=== PATIENT | female | born 1975 | race Hispanic/Latino ===

== ENCOUNTER → 2017-08-25 | Day surgery (SDC) | payer OTHER ==
[~2017-08-25] MED LIST: ACETAMINOPHEN 1000 MG/100 ML 100 ML IV ONE; BUPIVACAINE 0.5%/EPI 30 ML SDV INJ ONE; CEFAZOLIN SOD 2 GM/D5W 50ML 50 ML IV ONE; DEXAMETHASONE SOD PHOS INJ 4 MG/ML VIAL ONE; FENTANYL CITRATE/PF 100MCG/2 ML INJ ONE; KETOROLAC TROMETHAMINE 30 MG/ML VIAL ONE; ONDANSETRON HCL INJ 2 MG/ML VIAL ONE; PROPOFOL IV EMULSION 10 MG/ML 20 ML VIAL ONE; SEVOFLURANE INHAL SOLN 250 ML PEN BTL ONE
--- NOTE | 2017-08-26 09:24 | Operative Report ---
DATE OF PROCEDURE: August 25, 2017 PREOPERATIVE DIAGNOSIS: Left knee pain with possible intra-articular loose body. POSTOPERATIVE DIAGNOSES 1. 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 2. Symptomatic medial shelf plica. OPERATIONS/PROCEDURES PERFORMED 1. The patient underwent a left knee examination under anesthesia. 2. Left knee arthroscopy. 3. Left knee chondroplasty of the patella, trochlea, lateral femoral condyle, and lateral tibial plateau. 4. Resection of a medial shelf plica. DOBBY LOOM WEAVER: None. ANESTHESIA: General endotracheal intubation anesthesia. IV FLUIDS: Per the anesthesia record. BRIEF DESCRIPTION OF THE PATIENT'S OPERATIVE PROCEDURE: Ms. Ferrera was taken to the operating room and placed in the supine on the operating table. Following induction of general anesthesia, as well as endotracheal intubation, the patient's left lower extremity was examined under anesthesia. She was found to have a mild effusion within the knee joint. Range of motion of the knee was full. There was no ligamentous instability. The patient's lower extremity was prepped and draped in a standard surgical fashion. A 2-portal technique was used to provide this patient arthroscopic evaluation of the joint. Examination of the suprapatellar pouch, medial and lateral gutters found no evidence of loose bodies. There was, however, evidence of chondromalacia of the patellar and trochlear surfaces. Additionally, there was a large and inflamed medial shelf plica interdigitating between the patella and trochlea. The scope was advanced in the medial compartment. Examination of the medial compartment demonstrated an intact medial meniscus. There was no significant chondromalacia of the articulating surfaces of the medial compartment. There were no loose bodies in the medial compartment. The scope was advanced into the intercondylar, and the anterior cruciate ligament was identified and found to be intact. Scope was advanced in the lateral compartment, and there was chondromalacia of the lateral femoral condyle and lateral tibial plateau. The lateral femoral had a focal area of grade 2 chondromalacia. A shaver was used to provide a chondroplasty to the lateral femoral condyle and lateral tibial plateau. The scope was then placed in the intercondylar notch. The trocar was placed within the scope cannula, and the scope was advanced along the medial wall of the lateral femoral condyle into the posterior knee. The scope was then placed back within the trocar, and examination of the posterior aspect of the knee also did not demonstrate evidence of intra-articular loose body. The scope was then placed in the suprapatellar pouch and chondroplasty of the patella and trochlea were performed. The medial shelf plica was resected at this time. The knee was deflated of its sterile normal saline. The portal sites were closed and the knee was injected with 0.5% Marcaine with epinephrine. Sterile dressings were applied. The patient was then awakened and taken to the postanesthesia care in stable condition. Job#: [id number] KATLYN
== END | disposition home or self-care (01) ==
LOC: OR 08:17
PROVIDERS: ATTEND Specialist
DX: M67.52 Plica syndrome, left knee (principal); M22.42 Chondromalacia patellae, left knee; M23.42 Loose body in knee, left knee; M17.12 Unilateral primary osteoarthritis, left knee; Z68.36 Body mass index [BMI] 36.0-36.9, adult
CPT/HCPCS: 29875; 81025; J1100; J1885; J2405

== ENCOUNTER 2017-09-24 15:00 | Outpatient (RCR) | payer OTHER | END 2017-09-27 | LOC: PT 15:00 | PROVIDERS: ATTEND Specialist | DX: M25.561 Pain in right knee (principal); M17.11 Unilateral primary osteoarthritis, right knee ==

== ENCOUNTER 2017-10-05 17:00 | Outpatient (RCR) | payer OTHER | END 2017-10-28 | LOC: PT 17:00 | PROVIDERS: ATTEND Specialist | DX: M25.562 Pain in left knee (principal); M62.81 Muscle weakness (generalized) ==

== ENCOUNTER 2020-03-16 11:11 | Inpatient (IN) | payer OTHER ==
[~2020-03-16] VITALS: Ht 167.6 cm; Wt 106.2 kg
[2020-03-16] MEDS ORDERED: SODIUM CHLORIDE 0.9% 1000ML 1,000 ML IV STA (11:54)
[2020-03-16 12:07] LABS: HEMATOCRIT 32.7 % (34.2-44.1); HEMOGLOBIN 10.9 g/dL (12.0-16.0); LYMPHOCYTES # (AUTO) 0.6 (1.0-3.2); LYMPHOCYTES % 6.4 % (18.0-39.1); MEAN CORPUSCULAR HGB CONC 33.3 g/dL (31-35); MONOCYTES # (AUTO) 0.2 (0.2-0.8); MONOCYTES % 1.9 % (4.4-11.3); NEUTROPHILS # (AUTO) 8.7 (2.1-6.9); NEUTROPHILS % 90.7 % (38.7-80.0); PLATELET COUNT 187 x10e3/uL (140-360); RED BLOOD COUNT 3.76 x10e6/uL (3.6-5.1); RED CELL DISTRIBUTION WIDTH 13.6 % (11.7-14.4)
[2020-03-16 12:23] LABS: INR 1.12
[2020-03-16 12:24] LABS: PARTIAL THROMBOPLASTIN TIME 35.9 seconds (23.8-35.5)
[2020-03-16 12:32] LABS: ALANINE AMINOTRANSFERASE 30 IU/L (0-55); ALBUMIN/GLOBULIN RATIO 0.7 (0.8-2.0); ALKALINE PHOSPHATASE 42 IU/L (40-150); ANION GAP 17.4 mmol/L (8-16); BLOOD UREA NITROGEN 15 mg/dL (7-26); BUN/CREATININE RATIO 13 (6-25); CALCIUM 8.8 mg/dL (8.4-10.2); CARBON DIOXIDE 25 mmol/L (22-29); CHLORIDE 99 mmol/L (98-107); CREATINE KINASE 186 IU/L (29-168); CREATININE, SERUM 1.17 mg/dL (0.57-1.11); EST GLOMERULAR FILTRATION RATE 50 ML/MIN (60-); GLUCOSE 113 mg/dL (74-118); POTASSIUM 3.4 mmol/L (3.5-5.1); SODIUM 138 mmol/L (136-145)
[2020-03-16] MEDS: AZITHROMYCIN 500MG/NS 250 ML 250 ML IV SCH (12:38)
[2020-03-16] MEDS: CEFTRIAXONE SOD 2 GM/NS 100 ML 100 ML IV SCH (12:38)
[2020-03-16] MEDS: DEXAMETHASONE SOD PHOS 10 MG/1 ML VIAL IV SCH (12:38)
--- OUTSIDE RECORDS SUMMARY | 2020-03-16 13:26 | XMS REPORT | Continuity of Care Document ---
Author Author [facility] t Organization [facility] Address [address] [place] [address] Phone Unavailable Care Team Providers Care Intermediate Card Tender Name Role Phone BECKIE COTTO DO PCP Payers Payer Name Policy Type Policy Number Effective Date Expiration Date Marco A Garcia o [id number] 2017 00:00:00 [facility] Problems This patient has no known problems. Allergies, Adverse Reactions, Alerts Allergy Name Allergy Type Status Severity Reaction(s) Onset Date Inacti ve Date Treating Clinician Comments Source No Known Allergies DA Active U 2013-01-23 00:00:00 [facility] Medications This patient has no known medications. Procedures Procedure Date / Time Performed Performing Clinician Brenda e KNEE ARTHROSCOPY/SURGERY 2017-08-25 00:00:00 RITIKA DOMINGUEZ [facility] Encounters Start Date/Time End Date/Time Encounter Type Admission Type Attendi [facility] Care Department Encounter ID Source 2017-10-05 17:00:00 2017-10-28 23:59:00 Discharged Recurring [facility] [id number] [facility] 2017-09-14 15:56:00 2017-09-27 23:59:00 Discharged Recurring [facility] [id number] [facility] 2017-08-25 08:17:00 2017-08-25 08:17:00 Registered Surgical Day Care [facility] [id number] [facility] Results Test Description Test Time Test Comments Results Result Comments Source Urine Test 2017-08-25 08:53:00 Test Item Urine Test (test code = 2106-3) NEGATIVE [facility]IVE [facility] [id number] 08:53:00* Test Item Value Reference Range Interpretation Comments Urine Test (test code = 2106-3) NEGATIVE NEGATIVE [facility]
[2020-03-16 13:36] LABS: BILIRUBIN,URINE SMALL (NEGATIVE); CLARITY,URINE HAZY (CLEAR); COLOR,URINE AMBER (YELLOW); KETONES,URINE NEGATIVE (NEGATIVE); LEUKOCYTE ESTERASE ,URINE NEGATIVE (NEGATIVE); NITRITE,URINE NEGATIVE (NEGATIVE); PROTEIN,URINE DIPSTICK 2+ (NEGATIVE); URINE UROBILINOGEN 2 mg/dL (0.2 - 1)
[2020-03-16 13:40] LABS: BACTERIA,URINE MANY /HPF; EPITHELIAL CELLS,URINE MODERATE /LPF; MUCUS,URINE FEW (RARE)
--- NOTE | 2020-03-16 13:55 | Diagnostic Imaging Report ---
EXAMINATION: CHEST SINGLE (PORTABLE) INDICATION: COVID SX'S COMPARISON: None FINDINGS: TUBES and LINES: None. LUNGS: Lungs are moderately inflated. There are bilateral interstitial and patchy airspace opacities in the mid and lower lung zones. PLEURA: No pleural effusion or pneumothorax. HEART AND MEDIASTINUM: The cardiomediastinal silhouette is unremarkable. BONES AND SOFT TISSUES: No acute osseous lesion. Soft tissues are unremarkable. UPPER ABDOMEN: No free air under the diaphragm. IMPRESSION: Bilateral opacities, compatible with atypical infection, including viral pneumonia. Recommend follow-up chest radiograph in 6-8 weeks to assess for resolution. Signed by: Dr. Paul Rea MD on 03/16/2020 1:51 PM
[2020-03-16] MEDS ORDERED: SODIUM CHLORIDE 0.9% 1000ML 1,000 ML IV SCH (14:00)
--- NOTE | 2020-03-16 14:09 | Emergency Department Note ---
History of Present Illnes History of Present Illness Chief Complaint: Respiratory History of Present Illness This is a 44 year old female PATIENT EXPOSED TO BOTH HER CHILDREN WHO ARE COVID + C/O OF 10 DAYS ALTERNATING SYMPTOMS OF FATIGUE, CHILLS, NAUSEA, SHORTNESS OF BREATH, NO APPETITE, DIARRHEA. Historian: Patient Arrival Mode: Car Additional Treatment COUNTER TENDER: NONE Entertainment Usher Required: No Onset (how long ago): day(s) (10) Location: ALL OVER Quality: ACHY Radiation: Reports non-radiation Severity: moderate Onset quality: gradual Timing of current episode: intermittent Progression: waxing and waning Chronicity: new Context: Denies recent illness Relieving factors: none Exacerbating factors: none Associated symptoms: Reports cough, Reports fever/chills, Reports shortness of breath Past Medical/Family History Physician Review I have reviewed the patient's past medical and family history. Any updates have been documented here. Past Medical History Recent Fever: Yes (YESTERDAY 100) Clinical Suspicion of Infectio: Yes New/Unexplained Change in Ment: No Past Medical History: None Past Surgical History: Cholecysctectomy, Tubal Ligation, , Knee Replacement Other Surgery: PYLENODAL ABCESS DEVIATED SEPTUM Social History Smoking Cessation: Never Smoker Counseling Performed: No Alcohol Use: None Any Illegal Drug Use: No TB Exposure/Symptoms: No Physically hurt or threatened: No Family History Family history of heart diseas: No Other Any Pre-Existing Lines (PICC,: No Review of Systems Review of Systems Constitutional: Reports as per HPI EENTM: Reports no symptoms Cardiovascular: Reports no symptoms Respiratory: Reports as per HPI, Reports cough, Reports dyspnea, Reports dyspnea on exertion Gastrointestinal: Reports as per HPI, Reports nausea Genitourinary: Reports no symptoms Musculoskeletal: Reports joint pain, Reports muscle pain Integumentary: Reports no symptoms Neurological: Reports no symptoms Psychological: Reports no symptoms Endocrine: Reports no symptoms Hematological/Lymphatic: Reports no symptoms Physical Exam Related Data Allergies: Coded Allergies: No Known Allergies (Unverified , 03/16/20) Triage Vital Signs Vital Signs Date Time Temp Pulse Resp B/P (MAP) Pulse Ox O2 Delivery O2 Flow Rate FiO2 03/16/20 11:27 98.7 95 20 115/72 90 Room Air 03/16/20 12:40 2.0 Vital signs reviewed: Yes Physical Exam CONSTITUTIONAL Constitutional: Present well-developed, Present well-nourished HENT HENT: Present normocephalic, Present atraumatic, Present oropharynx clear/moist, Present nose normal HENT L/R: Present left ext ear normal, Present right ext ear normal EYES Eyes: Reports PERRL, Reports conjunctivae normal NECK Neck: Present ROM normal PULMONARY Pulmonary: Present effort normal, Present other (DECR BS's BIBASILAR) CARDIOVASCULAR Cardiovascular: Present regular rhythm, Present heart sounds normal, Present capillary refill normal, Present normal rate GASTROINTESTINAL Abdominal: Present soft, Present nontender, Present bowel sounds normal GENITOURINARY Genitourinary: Present exam deferred SKIN Skin: Present warm, Present dry MUSCULOSKELETAL Musculoskeletal: Present ROM normal NEUROLOGICAL Neurological: Present alert, Present oriented x 3, Present no gross motor or sensory deficits PSYCHOLOGICAL Psychological: Present mood/affect normal, Present judgement normal Results Laboratory Result Diagram: 03/16/20 1152 03/16/20 1152 Laboratory Laboratory Tests Test 03/16/20 12:33 03/16/20 11:56 03/16/20 11:52 Urine Color Maggy (YELLOW) Urine Clarity Hazy (CLEAR) Urine pH 6 (5 - 7) Urine Specific [place] 1.025 (1.010-1.025) Urine Protein 2+ (NEGATIVE) Urine Glucose (UA) Negative (NEGATIVE) Urine Ketones Negative (NEGATIVE) Urine Blood Moderate (NEGATIVE) Urine Nitrite Negative (NEGATIVE) Urine Bilirubin Small (NEGATIVE) Urine Urobilinogen 2 mg/dL (0.2 - 1) Urine Leukocyte Esterase Negative (NEGATIVE) Urine RBC 11-20 /HPF (0-5) Urine WBC 6-10 /HPF (0-5) Urine Epithelial Cells Moderate /LPF (NONE) Urine Bacteria Many /HPF (NONE) Urine Hyaline Casts 2-5 (0-1) Urine Mucus Few (RARE) White Blood Count 9.54 x10e3/uL (4.8-10.8) Red Blood Count 3.76 x10e6/uL (3.6-5.1) Hemoglobin 10.9 g/dL (12.0-16.0) Hematocrit 32.7 % (34.2-44.1) Mean Corpuscular Volume 87.0 fL (81-99) Mean Corpuscular Hemoglobin 29.0 pg (28-32) Mean Corpuscular Hemoglobin Concent 33.3 g/dL (31-35) Red Cell Distribution Width 13.6 % (11.7-14.4) Platelet Count 187 x10e3/uL (140-360) Neutrophils (%) (Auto) 90.7 % (38.7-80.0) Lymphocytes (%) (Auto) 6.4 % (18.0-39.1) Monocytes (%) (Auto) 1.9 % (4.4-11.3) Eosinophils (%) (Auto) 0.0 % (0.0-6.0) Basophils (%) (Auto) 0.0 % (0.0-1.0) Neutrophils # (Auto) 8.7 (2.1-6.9) Lymphocytes # (Auto) 0.6 (1.0-3.2) Monocytes # (Auto) 0.2 (0.2-0.8) Eosinophils # (Auto) 0.0 (0.0-0.4) Basophils # (Auto) 0.0 (0.0-0.1) Absolute Immature Granulocyte (auto 0.10 x10e3/uL (0-0.1) Prothrombin Time 15.0 seconds (11.9-14.5) Prothromb Time International Ratio 1.12 Activated Partial Thromboplast Time 35.9 seconds (23.8-35.5) Sodium Level 138 mmol/L (136-145) Potassium Level 3.4 mmol/L (3.5-5.1) Chloride Level 99 mmol/L (98-107) Carbon Dioxide Level 25 mmol/L (22-29) Anion Gap 17.4 mmol/L (8-16) Blood Urea Nitrogen 15 mg/dL (7-26) Creatinine 1.17 mg/dL (0.57-1.11) Estimat Glomerular Filtration Rate 50 ML/MIN (60-) BUN/Creatinine Ratio 13 (6-25) Glucose Level 113 mg/dL (74-118) Calcium Level 8.8 mg/dL (8.4-10.2) Total Bilirubin 0.5 mg/dL (0.2-1.2) Aspartate Amino Transf (AST/SGOT) 32 IU/L (5-34) Alanine Aminotransferase (ALT/SGPT) 30 IU/L (0-55) Alkaline Phosphatase 42 IU/L (40-150) Creatine Kinase 186 IU/L (29-168) Creatine Kinase MB 0.80 ng/mL (0-5.0) Troponin I < 0.001 ng/mL (0-0.300) Total Protein 7.3 g/dL (6.5-8.1) Albumin 3.0 g/dL (3.5-5.0) Globulin 4.3 g/dL (2.3-3.5) Albumin/Globulin Ratio 0.7 (0.8-2.0) Lab results reviewed: Yes Imaging Imaging results reviewed: Yes Assessment & Plan Medical Decision Making MDM 10 D OF F/C, ACHING, THEN COUGH & PROGRESSIVE SOB X 2-3 DAYS - LIKELY COVID19, CHECK CBC, CHEM, BLD CX'S, CXR, ADMIT. INITIAL O2 SAT 88% ON RA, NOW SAT 98% ON 3 L Reassessment Reassessment ADMIT TO DR ASHLEY (PCP IS DR COTTO), CONSULT Azam CELESTE Assessment & Plan Final Impression: (1) Pneumonia due to COVID-19 virus (2) Hypoxia Depart Disposition: ADMITTED Last Vital Signs Date Time Temp Pulse Resp B/P (MAP) Pulse Ox O2 Delivery O2 Flow Rate FiO2 03/16/20 12:40 99.1 91 22 117/74 98 Nasal Cannula 2.0 Home Meds No Active Prescriptions or Reported Meds Medications in the ED Ceftriaxone Sodium 100 ml @ 100 mls/hr DAILY IV Last administered on 03/16/20at 12:38; Admin Dose 100 MLS/HR; Start 03/16/20 at 12:15; Stop 0 at 12:14 Azithromycin 250 ml @ 200 mls/hr DAILY IV Last administered on 03/16/20at 12:38; Admin Dose 200 MLS/HR; Start 03/16/20 at 12:16; Stop 03/23/20 at 12:15 Dexamethasone Sodium Phosphate 6 mg DAILY IV Last administered on 03/16/20at 12:38; Admin Dose 6 MG; Start 03/16/20 at 12:18; Stop 03/23/20 at 12:17 Sodium Chloride 1,000 ml @ 0 mls/hr Q0M STAT IV Last administered on 03/16/20at 12:38; Admin Dose 999 MLS/HR; Start 03/16/20 at 11:54; Stop 03/16/20 at 11:59; Status DC Sodium Chloride 1,000 ml @ 100 mls/hr Q10H IV ; Start 03/16/20 at 14:00; Stop 03/16/20 at 23:59; Status UNV SRIKANTH KRUSE MD Mar 16, 2020 14:09
--- OUTSIDE RECORDS SUMMARY | 2020-03-16 14:12 | XMS REPORT | Continuity of Care Document ---
Author Author [facility] t Organization [facility] Address [address] [place] [address] Phone Unavailable Care Team Providers Care Supplier Quality Name Role Phone BECKIE COTTO DO PCP Zak KRUSE Attphys Unavailable Payers Payer Name Policy Type Policy Number Effective Date Expiration Date Marco A Garcia o [id number] 2017 00:00:00 [facility] Problems This patient has no known problems. Allergies, Adverse Reactions, Alerts Allergy Name Allergy Type Status Severity Reaction(s) Onset Date Inacti ve Date Treating Clinician Comments Source No Known Allergies DA Active U 2013-01-23 00:00:00 [facility] Medications This patient has no known medications. Procedures Procedure Date / Time Performed Performing Clinician Sour e KNEE ARTHROSCOPY/SURGERY 2017-08-25 00:00:00 RITIKA DOMINGUEZ [facility] Encounters Start Date/Time End Date/Time [facility]counter [facility] Encounter ID Source 2017-10-05 17:00:00 2017-10-28 23:59:00 Discharged Recurring [facility] [id number] [facility] 2017-09-14 15:56:00 2017-09-27 23:59:00 Discharged Recurring [facility] [id number] [facility] 2017-08-25 08:17:00 2017-08-25 08:17:00 Registered Surgical Day Care [facility] [id number] [facility] Results Test Description Test Time Test Comments Results Result Comments Source CHEST SINGLE (PORTABLE) 2020-03-16 13:50:00 [facility] : 1975 Sex: F [facility] [address] [place] [address] Patient Name: HAILEY DIAZ MR #: [id number] : 1975 Age/Sex: 44/F Req #: [id number] Adm Physician: Ordered by: SRIKANTH KRUSE MD Report #: [id number] Location: ER Room/Bed: Procedure: [id number] DX/CHEST SINGLE (PORTABLE) Exam Date: 03/16/20 Exam Time: 1320 REPORT STATUS: Signed EXAMINATION: CHEST SINGLE (PORTABLE) INDICATION: COVID SX'S COMPARISON: None FINDINGS: TUBES and LINES: None. LUNGS: Lungs are moderately inflated. There are bilateral interstitial and patchy airspace opacities in the mid and lower lung zones. PLEURA: No pleural effusion or pneumothorax. HEART AND MEDIASTINUM: The cardiomediastinal silhouette is unremarkable. BONES AND SOFT TISSUES: No acute osseous lesion. Soft tissues are unremarkable. UPPER ABDOMEN: No free air under the diaphragm. IMPRESSION: Bilateral opacities, compatible with atypical infection, including viral pneumonia. Recommend follow-up chest radiograph in 6-8 weeks to assess for resolution. Signed by: Dr. Heike Alford MD on 03/16/2020 1:51 PM Dictated By: HEIKE ALFORD MD 135 Transcribed By: HEBERT on 03/16/20 1351 COPY TO: SRIKANTH KRUSE MD Urine Test 2017-08-25 08:53:00 Test Item Urine Test (test code = 2106-3) NEGATIVE NEGATIVE [facility] [id number] 08:53:00* Test Item Value Reference Range Interpretation Comments Urine Test (test code = 2106-3) NEGATIVE NEGATIVE [facility]
[2020-03-16] MEDS ORDERED: ACETAMINOPHEN 325 MG TAB PO PRN (16:00)
[2020-03-16] MEDS ORDERED: ONDANSETRON HCL INJ 2MG/ML 2ML 2 MG/ML VIAL IV PRN (16:00)
[2020-03-16] MEDS ORDERED: POTASSIUM CHLORIDE 20 MEQ TAB CR PO PRN (16:45)
[2020-03-16] MEDS: ENOXAPARIN SOD INJ 40 MG/0.4 ML SYR SC SCH (17:01)
--- NOTE | 2020-03-16 17:04 | Consultation ---
DATE OF CONSULTATION: Pulmonary Critical Care Consultation CHIEF COMPLAINT: Fevers, cough and infiltrates suggestive of viral pneumonia. HISTORY OF PRESENT ILLNESS: The patient is a 44-year-old woman. She reports myalgias, fevers, and fatigue for about 10 days. She has also noticed some shortness of breath and some cough. Her symptoms have not been relieved with some medications prescribed by her physician over the phone. PAST SURGICAL HISTORY: 1. Status post cholecystectomy. 2. Status post nasal surgery. 3. Status post tubal ligation. 4. Status post knee surgery. PAST MEDICAL HISTORY: 1. No prior history of asthma or bronchitis. 2. No prior history of cardiac disease. ALLERGIES: NO KNOWN DRUG ALLERGIES. FAMILY HISTORY: Noncontributory. SOCIAL HISTORY: The patient is not a smoker. She is not a drinker. REVIEW OF SYSTEMS: The patient has had some myalgias. She had some mild fevers. She also had congestion and cough. She has no chest pain. She has some dyspnea. She has no abdominal pain. She did have some nausea and vomiting. She has no leg edema. PHYSICAL EXAMINATION: VITAL SIGNS: The blood pressure is 117/74 and the pulse is 91, saturation is 98% on 2 L, and temperature is 99.1. HEENT: No facial swelling or erythema. LYMPHATIC: No submandibular, cervical, or supraclavicular adenopathy. CARDIAC: Regular rate and rhythm with normal S1, S2. LUNGS: Auscultation of lungs reveals rhonchorous breath sounds bilaterally. There is no wheezing. ABDOMEN: Soft, nontender. There is no rebound or guarding. EXTREMITIES: No leg edema. SKIN: No rashes. LABORATORY DATA: Sodium is 138, potassium is 3.4. The BUN to creatinine ratio is 15 to 1.17. Other electrolytes are within normal limits. The white blood cell count 9.5 and hemoglobin is 10.9. The platelet count is 187. RADIOGRAPHIC DATA: Chest x-ray shows bilateral opacities suggestive of atypical pneumonia. IMPRESSION: 1. Coronavirus disease-19 and viral pneumonia. 2. Acute respiratory failure. 3. Nausea and vomiting. 4. Anemia, unspecified. 5. Acute kidney injury. 6. Hypokalemia. PLAN: 1. The patient to receive IV hydration. 2. Begin Rocephin and Zithromax. 3. Lovenox for DVT prophylaxis. 4. Judicious use of IV fluids. 5. The patient will probably be a candidate for remdesivir. MD ABDULAZIZ Solis/DAIANA /[id number]
[2020-03-16] MEDS: HYDROCODONE/APAP 5MG-325MG TAB PO PRN (22:45)
[2020-03-16] MEDS: ZOLPIDEM TARTRATE 5 MG TAB PO PRN (22:45)
--- NOTE | 2020-03-16 22:50 | NUR ---
patient received to room 297 via stretcher from the emergency room. vss. patient medicated for c/o generalized pain per patients request. admit assessment/history obtained. telemetry placed on patient but patient refuses pulse ox per orders at this time. call pitts placed within reach. patient instructed to call for assistance when needed.
[2020-03-16 22:58] VITALS: BP 137/82
[2020-03-16 23:18] VITALS: BP 137/82
[2020-03-17] VITALS (10 sets, daily range): BP systolic 128–140; BP diastolic 80–95
--- NOTE | 2020-03-17 06:53 | Diagnostic Imaging Report ---
EXAMINATION: CHEST SINGLE (PORTABLE) INDICATION: ^Y ^PNEMONIA ^[id number] ^0613 ^Y COMPARISON: 03/16/2020 FINDINGS: AP view TUBES and LINES: None. LUNGS: Low lung volumes. Diffuse bilateral airspace opacities, increased from prior exam. PLEURA: No pleural effusion or pneumothorax. HEART AND MEDIASTINUM: The cardiomediastinal silhouette is enlarged. BONES AND SOFT TISSUES: No acute osseous lesion. Soft tissues are unremarkable. UPPER ABDOMEN: No free air under the diaphragm. IMPRESSION: Increased bilateral airspace opacities, representing worsening edema and/or pneumonia. Signed by: Dr. Crow Wiley MD on 03/17/2020 6:50 AM
[2020-03-17 07:12] LABS: HEMATOCRIT 30.1 % (34.2-44.1); HEMOGLOBIN 10.1 g/dL (12.0-16.0); LYMPHOCYTES # (AUTO) 0.7 (1.0-3.2); LYMPHOCYTES % 13.3 % (18.0-39.1); MEAN CORPUSCULAR HEMOGLOBIN 29.4 pg (28-32); MEAN CORPUSCULAR HGB CONC 33.6 g/dL (31-35); MEAN CORPUSCULAR VOLUME 87.8 fL (81-99); MONOCYTES # (AUTO) 0.1 (0.2-0.8); MONOCYTES % 2.5 % (4.4-11.3); NEUTROPHILS # (AUTO) 4.3 (2.1-6.9); NEUTROPHILS % 83.6 % (38.7-80.0); PLATELET COUNT 212 x10e3/uL (140-360); RED BLOOD COUNT 3.43 x10e6/uL (3.6-5.1); RED CELL DISTRIBUTION WIDTH 13.4 % (11.7-14.4)
[2020-03-17 07:30] LABS: ALANINE AMINOTRANSFERASE 27 IU/L (0-55); ALBUMIN 2.7 g/dL (3.5-5.0); ALBUMIN/GLOBULIN RATIO 0.6 (0.8-2.0); ALKALINE PHOSPHATASE 39 IU/L (40-150); ANION GAP 12.6 mmol/L (8-16); BLOOD UREA NITROGEN 16 mg/dL (7-26); BUN/CREATININE RATIO 22 (6-25); CALCIUM 8.6 mg/dL (8.4-10.2); CARBON DIOXIDE 23 mmol/L (22-29); CHLORIDE 106 mmol/L (98-107); CREATININE, SERUM 0.73 mg/dL (0.57-1.11); EST GLOMERULAR FILTRATION RATE > 60 ML/MIN (60-); GLUCOSE 116 mg/dL (74-118); POTASSIUM 3.6 mmol/L (3.5-5.1); SODIUM 138 mmol/L (136-145)
--- NOTE | 2020-03-17 07:30 | NUR ---
PATIENT SITTING AT BED SIDE, NOTED WITH SOME COUGH, NO DISTRESS NOTED. O2 IN PLACE VIA N/C. TELEMETRY BOX [address] BED IN LOWER POSITION, CALL LIGHT AT REACH.
[2020-03-17] MEDS: AZITHROMYCIN 500MG/NS 250 ML 250 ML IV SCH (09:13)
[2020-03-17] MEDS: DEXAMETHASONE SOD PHOS 10 MG/1 ML VIAL IV SCH ×2 (09:13→17:35)
--- NOTE | 2020-03-17 10:45 | NUR ---
PATIENT TRANSFERRED TO ROOM 298. BED SIDE SHIFT REPORT GIVEN TO RECEIVING NURSE.
[2020-03-17] MEDS ORDERED: FUROSEMIDE INJ 10 MG/ML 4 ML VIAL IV ONE (12:00)
[2020-03-17] MEDS: BENZONATATE 100 MG CAP PO PRN ×2 (12:03→23:47)
[2020-03-17] MEDS: CEFTRIAXONE SOD 2 GM/NS 100 ML 100 ML IV SCH (12:03)
--- NOTE | 2020-03-17 12:22 | Progress Note ---
DATE: SUBJECTIVE: The patient is having less discomfort, but she still has some cough and dyspnea. She did not have fevers overnight. Her initial COVID test was negative. PHYSICAL EXAMINATION: VITAL SIGNS: Blood pressure is 128/80, saturations 98% on 3 L and her respiratory rate is 22. HEENT: Shows no facial swelling or erythema. LYMPHATIC: Shows no submandibular, cervical, supraclavicular adenopathy. CARDIAC: Reveals regular rate and rhythm with normal S1, S2. LUNGS: Auscultation of lungs reveals crackles at the bases. There is no wheezing. ABDOMEN: Soft and nontender. There is no rebound or guarding. LABORATORY DATA: Hemoglobin is 10.1, and the platelet count is 212. The BUN to creatinine ratio is normal. The other electrolytes are within normal limits and the albumin is 2.7. IMAGING: Increased bilateral airspace opacities. 1. Community-acquired pneumonia with sepsis, present on admission. 2. Anemia, unspecified. 3. Acute kidney injury. PLAN: 1. Continue current antibiotics. 2. Repeat COVID test. 3. CT scan of chest. 4. Echocardiogram. Prieto Brooks MD [facility]/MODL /[id number]
[2020-03-17] MEDS ORDERED: DEXAMETHASONE SOD PHOS 10 MG/1 ML VIAL IV SCH (14:30)
--- NOTE | 2020-03-17 15:17 | Consultation ---
DATE OF CONSULTATION: HISTORY OF PRESENT ILLNESS: Ms. Stockton is a 44-year-old female with history of fibromyalgia, cholecystectomy, nasal surgery, and tubal ligation. The patient apparently has been sick . Her two kids were diagnosed with COVID-19. She has been having fever, chills, and sore throat. She lost her smell, but she was tested as an outpatient three times for COVID came back negative, but she became short of breath, so she came here and her COVID PCR is also negative here. LABORATORY DATA: Sodium 138, potassium 3.6, creatinine 0.73 and when she first came it was 1.7. Her white count 5.12, hemoglobin 10. PAST MEDICAL HISTORY: As above. PAST SURGICAL HISTORY: As above. ALLERGIES: NKA. SOCIAL HISTORY: There is no smoking, drug abuse, or alcohol abuse. FAMILY HISTORY: Otherwise unremarkable. PHYSICAL EXAMINATION: GENERAL: She is currently alert and oriented. VITAL SIGNS: Stable, currently afebrile. HEENT: She is not icteric. NECK: Supple. CHEST: Clear. HEART: S1, S2. ABDOMEN: Soft. Bowel sounds present. EXTREMITIES: No edema. SKIN: No rash. IMPRESSION: Atypical pneumonia. I agree with Rocephin. I agree with azithromycin. We will obtain CTA and we will start dexamethasone. I discussed with the patient about convalescent plasma as well as Remdesivir, they are both experimental drugs; unfortunately, so far the studies are not too strong. The FDA approved on Urgent Care because we are pandemic. The patient since has a negative PCR x3, she decided to wait. We will give her dexamethasone as ordered. We will obtain CTA. We will continue Lovenox, continue antibiotic. We will follow. MD KRISTINA Esteban/FRANCESCOL /[id number]
[2020-03-17] MEDS ORDERED: SODIUM CHLORIDE 0.9% 50ML 50 ML ONE (15:29)
[2020-03-17] MEDS ORDERED: IOPAMIDOL 370 MG/ML 200 ML INFUS..BTL INJ ONE (15:30)
[2020-03-17] MEDS: ENOXAPARIN SOD INJ 40 MG/0.4 ML SYR SC SCH (17:38)
--- NOTE | 2020-03-17 18:04 | Diagnostic Imaging Report ---
EXAM: CT Chest WITH contrast- Pulmonary Embolism Protocol INDICATION: Hypoxia, query pulmonary embolism. COMPARISON: Chest radiograph 03-17-2020. TECHNIQUE: Chest was scanned utilizing a multidetector helical scanner from the lung apex through the level of the diaphragm after administration of IV contrast. Thin section reconstructions were obtained with special concentration on the pulmonary arteries. Coronal and sagittal reformations were obtained. Pulmonary embolism protocol was performed. IV CONTRAST: 100 cc of Isovue 370 RADIATION DOSE: Total DLP: 419.6 mGy*cm Dose modulation, iterative reconstruction, and/or weight based adjustment of the mA/kV was utilized to reduce the radiation dose to as low as reasonably achievable. COMPLICATIONS: None FINDINGS: LINES/ TUBES: None. PULMONARY ARTERIES: No filling defect is identified within the pulmonary arteries to the segmental level. The subsegmental pulmonary arteries are not well opacified. Main pulmonary artery measures 3.3 cm in diameter. LUNGS AND AIRWAYS: The central airways are patent. There are multifocal bilateral patchy groundglass and consolidative opacities, in a predominantly peripheral distribution in all lobes. PLEURA: The pleural spaces are clear. HEART AND MEDIASTINUM: The thyroid gland is normal. No mediastinal, hilar or axillary lymphadenopathy. The heart is normal in size.. There is no pericardial effusion. UPPER ABDOMEN: Limited contrast-enhanced views of the upper abdomen. Small hiatal hernia. BONES: The visualized bony thorax is within normal limits. SOFT TISSUES: Unremarkable. IMPRESSION: No evidence of pulmonary embolism to level of the segmental pulmonary arteries. Mild cardiomegaly. Dilation of the main pulmonary artery, suggestive of pulmonary arterial hypertension. Multifocal bilateral pneumonia, compatible with viral pneumonia. Signed by: Dr. Paul Rea MD on 03/17/2020 6:01 PM
--- NOTE | 2020-03-17 19:15 | NUR ---
patient received awake, alert, lying quietly in bed. vss. no c/o pain noted. 07/03l/nc in use. respirations even and unlabored. pm assessment complete. call pitts placed within reach. patient instructed to call for assistance when needed.
[2020-03-17] MEDS: HYDROCODONE/APAP 5MG-325MG TAB PO PRN (23:47)
[2020-03-18] VITALS (8 sets, daily range): BP systolic 132–150; BP diastolic 73–94
[2020-03-18] MEDS: CEFTRIAXONE SOD 2 GM/NS 100 ML 100 ML IV SCH (09:31)
[2020-03-18] MEDS: BENZONATATE 100 MG CAP PO PRN ×2 (10:39→22:23)
[2020-03-18] MEDS: HYDROCODONE/APAP 5MG-325MG TAB PO PRN ×2 (10:39→22:31)
[2020-03-18] MEDS: AZITHROMYCIN 500MG/NS 250 ML 250 ML IV SCH (11:30)
--- NOTE | 2020-03-18 12:04 | NUR ---
INFECTIOUS DISEASE PROGRESS NOTE DR. ALDO MARIN ROS: +sob, +dyspnea ALL 14 POINT ROS NEG UNLESS OTHERWISE NOTED LABORATORY DATA: per chart RADIOLOGY: per chart, CT indicated viral PNA PHYSICAL EXAMINATION: GENERAL: She is currently alert and oriented. VITAL SIGNS: Stable, currently afebrile. HEENT: She is not icteric. NECK: Supple. CHEST: Clear. HEART: S1, S2. ABDOMEN: Soft. Bowel sounds present. EXTREMITIES: No edema. SKIN: No rash. IMPRESSION: Atypical pneumonia Viral Pneumonia PLAN: Keep on droplet precautions until we recheck the PCR Get Legionella now on 8LPM Doris Richards MSN, [employer], AGACNP-BC DISCUSSED WITH DR MARIN
[2020-03-18] MEDS: DEXAMETHASONE SOD PHOS 10 MG/1 ML VIAL IV SCH (17:17)
[2020-03-18] MEDS: ENOXAPARIN SOD INJ 40 MG/0.4 ML SYR SC SCH (17:17)
--- NOTE | 2020-03-18 19:44 | Progress Note ---
DATE: SUBJECTIVE: The patient is afebrile. She is not having any chest pain. She still has some cough. Her oxygen was increased to 8 L. PHYSICAL EXAMINATION: VITAL SIGNS: The blood pressure is 132/73, saturation is 95% on 8 L and the pulse is 58. HEENT: Shows no facial swelling or erythema. LYMPHATIC: Shows no submandibular, cervical or supraclavicular adenopathy. CARDIAC: Reveals regular rate and rhythm with normal S1 and S2. LUNGS: Auscultation of lungs shows decreased breath sounds at the bases. There is no wheezing. ABDOMEN: Soft and nontender. There is no rebound or guarding. EXTREMITIES: Shows no leg edema or calf tenderness. LABORATORY DATA: BUN to creatinine ratio is normal. Other electrolytes are within normal limits. Albumin is 2.7. The white blood cell count is 5.1, hemoglobin is 10.1, the platelet count is 212. IMPRESSION: 1. Community-acquired pneumonia with sepsis, present on admission. 2. Anemia, unspecified. PLAN: 1. Continue current antibiotics. 2. Continue oxygen as needed. 3. Await repeat COVID test. Prieto Brooks MD [facility]/MODL /[id number]
--- NOTE | 2020-03-18 20:49 | Diagnostic Imaging Report ---
EXAMINATION: CHEST SINGLE (PORTABLE) INDICATION: Hypoxia. COMPARISON: Multiple prior chest radiograph including most recent on 03/17/2020. FINDINGS: TUBES and LINES: None. LUNGS: Normal lung volumes. There is multifocal patchy airspace opacities throughout both lungs. PLEURA: No pleural effusion or pneumothorax. HEART AND MEDIASTINUM: The cardiomediastinal silhouette is mildly enlarged. BONES AND SOFT TISSUES: No acute osseous lesion. Soft tissues are unremarkable. UPPER ABDOMEN: No free air under the diaphragm. IMPRESSION: 1. Patchy airspace opacities throughout both lungs compatible with multifocal pneumonia and probable superimposed pulmonary edema. 2. Mild cardiomegaly. Signed by: Capri Islas MD on 03/18/2020 8:45 PM
[2020-03-19] VITALS (8 sets, daily range): BP systolic 136–154; BP diastolic 75–87
--- NOTE | 2020-03-19 07:00 | NUR ---
REPORT GIVEN TO DAYSHIFT NURSE. ALERT AND ORIENTED. RESTING IN BED. NO SIGNS IV INFILTRATION. BED LOCKED AND IN LOW POSITION. CALL LIGHT WITHIN REACH.
--- NOTE | 2020-03-19 07:45 | NUR ---
PATIENT IN BED RESTING WITH EYES CLOSED, NO DISTRESS NOTED. HIGH FLOW O2 IN PLACE. BED IN LOWER POSITION, CALL LIGHT AT REACH.
[2020-03-19] MEDS: CEFTRIAXONE SOD 2 GM/NS 100 ML 100 ML IV SCH (08:56)
[2020-03-19] MEDS: AZITHROMYCIN 500MG/NS 250 ML 250 ML IV SCH (09:40)
[2020-03-19] MEDS: BENZONATATE 100 MG CAP PO PRN ×2 (10:37→21:13)
[2020-03-19] MEDS ORDERED: BISACODYL 10 MG SUPP PR PRN (11:00)
--- NOTE | 2020-03-19 11:01 | NUR ---
MD IN TO SEE PATIENT, NEW ORDERS RECEIVED.
[2020-03-19] MEDS: HYDROCODONE/APAP 5MG-325MG TAB PO PRN ×2 (13:10→21:13)
--- NOTE | 2020-03-19 15:16 | NUR ---
PATIENT C/O CONSTIPATION, NOTIFIED, NEW ORDER RECEIVED.
[2020-03-19] MEDS: SENNA-S TABLET PO SCH (17:28)
[2020-03-19] MEDS: DEXAMETHASONE SOD PHOS 10 MG/1 ML VIAL IV SCH (17:28)
[2020-03-19] MEDS: ENOXAPARIN SOD INJ 40 MG/0.4 ML SYR SC SCH (17:28)
--- NOTE | 2020-03-19 17:50 | NUR ---
INFECTIOUS DISEASE PROGRESS NOTE DR. ALDO MARIN ROS: +sob, +dyspnea ALL 14 POINT ROS NEG UNLESS OTHERWISE NOTED LABORATORY DATA: per chart RADIOLOGY: per chart, CT indicated viral PNA PHYSICAL EXAMINATION: GENERAL: She is currently alert and oriented. VITAL SIGNS: Stable, currently afebrile. HEENT: She is not icteric. NECK: Supple. no JVD CHEST: diminished, symmetric expansion HEART: S1, S2. no s3, s4, no rub ABDOMEN: Soft. Bowel sounds present. EXTREMITIES: No edema. no contractures SKIN: No rash. IMPRESSION: Atypical pneumonia Viral Pneumonia work-up for collagen disease PLAN: COVID is negative x2 Get C-ANCA, P-ANCA, HIV, ESR, CRP, JULIO, RF urine legionella pending Continue the same for now Doris Richards MSN, [employer], AGACNP-BC DISCUSSED WITH DR MARIN
--- NOTE | 2020-03-19 18:30 | Progress Note ---
DATE: SUBJECTIVE: The patient is afebrile. She is still requiring 8 L of oxygen. She has some cough and dyspnea. PHYSICAL EXAMINATION: VITAL SIGNS: Blood pressure is 137/75, saturation is 98%, and the pulse is 59. HEENT: Shows no facial swelling or erythema. LYMPHATIC: Shows no submandibular, cervical, or supraclavicular adenopathy. CARDIAC: Reveals regular rate and rhythm with normal S1 and S2. LUNGS: Auscultation of lungs reveals crackles at the bases. There is no wheezing. ABDOMEN: Soft and nontender. There is no rebound or guarding. EXTREMITIES: Show no leg edema or calf tenderness. There is no cyanosis or clubbing. SKIN: Shows no rashes. NEUROLOGICAL: Shows no focal abnormalities. LABORATORY DATA: Electrolytes, BUN and creatinine all within normal limits and the albumin is 2.7. Hemoglobin is 10.1 and the platelet count is 212. RADIOGRAPHIC DATA: Chest x-ray shows patchy airspace opacities. IMPRESSION: 1. Atypical pneumonia with sepsis, present on admission. 2. Anemia, unspecified. PLAN: 1. Continue current antibiotics. 2. Wean oxygen as tolerated. Prieto Brooks MD [facility] /[id number]
[2020-03-19 21:46] LABS: HIV 1&2 AB SCREEN NON-REACTIVE (NONREACTIVE)
--- NOTE | 2020-03-19 23:38 | NUR ---
pt resting comfortably in bed no signs of distress no complaints at this time
[2020-03-20] VITALS (8 sets, daily range): BP systolic 125–153; BP diastolic 70–89
[2020-03-20] MEDS: CEFTRIAXONE SOD 2 GM/NS 100 ML 100 ML IV SCH (10:07)
[2020-03-20] MEDS: BENZONATATE 100 MG CAP PO PRN ×2 (10:07→21:07)
[2020-03-20] MEDS: HYDROCODONE/APAP 5MG-325MG TAB PO PRN ×3 (10:07→21:07)
[2020-03-20] MEDS: AZITHROMYCIN 500MG/NS 250 ML 250 ML IV SCH (10:07)
[2020-03-20] MEDS: SENNA-S TABLET PO SCH ×2 (10:07→15:52)
--- NOTE | 2020-03-20 14:18 | Progress Note ---
DATE: SUBJECTIVE: The patient has been up and about. She has been walking to the bathroom. She is not complaining of any chest pain or cough. PHYSICAL EXAMINATION: VITAL SIGNS: The patient is afebrile. The blood pressure is 125/76, saturation is 97%. She is on 7 L. The pulse is 65. HEENT: Shows no facial swelling or erythema. LYMPHATIC: Shows no submandibular, cervical, or supraclavicular adenopathy. CARDIAC: Reveals a regular rate and rhythm with a normal S1, S2. LUNGS: Auscultation of lungs reveals rhonchorous breath sounds bilaterally. There is no wheezing. ABDOMEN: Soft, nontender. There is no rebound or guarding. EXTREMITIES: Shows no leg edema or calf tenderness. IMPRESSION: 1. Atypical pneumonia. 2. Anemia, unspecified. PLAN: 1. Continue to wean oxygen. 2. Continue current antibiotics. 3. Await vasculitis and rheumatologic studies. MD ABDULAZIZ [facility] /[id number]
--- NOTE | 2020-03-20 14:18 | Progress Note ---
DATE: SUBJECTIVE: Ms. Ferrera is feeling better. She is still on oxygen. REVIEW OF SYSTEMS: Besides the shortness of breath she denies any. She is on nasal cannula. PHYSICAL EXAMINATION: GENERAL: She is currently alert, oriented. VITAL SIGNS: Stable, currently afebrile. HEENT: She is not icteric. NECK: Supple. CHEST: Crackles bilateral. HEART: S1, S2. ABDOMEN: Soft. Bowel sounds present. EXTREMITIES: No edema. SKIN: No rash. IMPRESSION: Atypical pneumonia, pulmonary infiltrate. It could be coronavirus disease still even though we tested her several times came back negative. Could be history of coronavirus disease with postinfectious antibiotic process, but still waiting on urine Legionella mycoplasma. Her HIV was negative. Continue with dexamethasone for 10 days. Continue with antibiotic as ordered. Oxygen as needed. She may end up going home with oxygen. Discussed with the patient about upper lung biopsy. She is she would like to wait. Discussed with the patient at length. Discussed with medical team. MD KRISTINA Esteban/MODL /[id number]
--- NOTE | 2020-03-20 14:46 | NUR ---
INFECTIOUS DISEASE PROGRESS NOTE DR. ALDO MARIN ROS: +sob, +dyspnea ALL 14 POINT ROS NEG UNLESS OTHERWISE NOTED LABORATORY DATA: per chart RADIOLOGY: per chart, CT indicated viral PNA PHYSICAL EXAMINATION: GENERAL: She is currently alert and oriented. VITAL SIGNS: Stable, currently afebrile. HEENT: She is not icteric. NECK: Supple. no JVD CHEST: diminished, symmetric expansion HEART: S1, S2. no s3, s4, no rub ABDOMEN: Soft. Bowel sounds present. EXTREMITIES: No edema. no contractures SKIN: No rash. IMPRESSION: Atypical pneumonia Viral Pneumonia work-up for collagen disease PLAN: Pending: C-ANCA, P-ANCA, HIV, ESR, CRP, JULIO, RF urine legionella pending workup continuing on 7LPM Doris Richards MSN, [employer] TECH[employer]ICIAN, AGACNP-BC DISCUSSED WITH DR MARIN
[2020-03-20] MEDS: DEXAMETHASONE SOD PHOS 10 MG/1 ML VIAL IV SCH (15:52)
[2020-03-20] MEDS: ENOXAPARIN SOD INJ 40 MG/0.4 ML SYR SC SCH (15:52)
[2020-03-20] MEDS: ZOLPIDEM TARTRATE 5 MG TAB PO PRN (21:07)
[2020-03-21] VITALS (8 sets, daily range): BP systolic 100–160; BP diastolic 58–91
[2020-03-21 06:00] LABS: BASOPHILS % 0.2 % (0.0-1.0); HEMATOCRIT 32.8 % (34.2-44.1); HEMOGLOBIN 10.7 g/dL (12.0-16.0); LYMPHOCYTES # (AUTO) 1.3 (1.0-3.2); LYMPHOCYTES % 20.3 % (18.0-39.1); MEAN CORPUSCULAR HEMOGLOBIN 28.7 pg (28-32); MEAN CORPUSCULAR HGB CONC 32.6 g/dL (31-35); MEAN CORPUSCULAR VOLUME 87.9 fL (81-99); MONOCYTES # (AUTO) 0.5 (0.2-0.8); MONOCYTES % 8.1 % (4.4-11.3); NEUTROPHILS # (AUTO) 4.2 (2.1-6.9); NEUTROPHILS % 67.1 % (38.7-80.0); PLATELET COUNT 347 x10e3/uL (140-360); RED BLOOD COUNT 3.73 x10e6/uL (3.6-5.1); RED CELL DISTRIBUTION WIDTH 13.2 % (11.7-14.4)
[2020-03-21 06:26] LABS: ALANINE AMINOTRANSFERASE 90 IU/L (0-55); ALBUMIN 2.8 g/dL (3.5-5.0); ALBUMIN/GLOBULIN RATIO 0.8 (0.8-2.0); ALKALINE PHOSPHATASE 36 IU/L (40-150); ANION GAP 11.2 mmol/L (8-16); BLOOD UREA NITROGEN 14 mg/dL (7-26); BUN/CREATININE RATIO 22 (6-25); CALCIUM 8.3 mg/dL (8.4-10.2); CARBON DIOXIDE 26 mmol/L (22-29); CHLORIDE 104 mmol/L (98-107); CREATININE, SERUM 0.65 mg/dL (0.57-1.11); EST GLOMERULAR FILTRATION RATE > 60 ML/MIN (60-); GLUCOSE 112 mg/dL (74-118); POTASSIUM 4.2 mmol/L (3.5-5.1); SODIUM 137 mmol/L (136-145)
--- NOTE | 2020-03-21 07:32 | NUR ---
PATIENT IN BED RESTING WITH EYES CLOSED, HIGH FLOW O2 IN PLACE. ALL PERSONAL ITEMS CLOSE TO PATIENT, CALL LIGHT AT REACH.
[2020-03-21] MEDS: CEFTRIAXONE SOD 2 GM/NS 100 ML 100 ML IV SCH (08:49)
[2020-03-21] MEDS: BENZONATATE 100 MG CAP PO PRN ×2 (08:53→22:00)
[2020-03-21] MEDS: SENNA-S TABLET PO SCH ×2 (09:13→17:15)
[2020-03-21] MEDS: AZITHROMYCIN 500MG/NS 250 ML 250 ML IV SCH (10:00)
--- NOTE | 2020-03-21 11:54 | NUR ---
MD IN TO SEE PATIENT, NEW ORDER RECEIVED.
--- NOTE | 2020-03-21 13:06 | Progress Note ---
DATE: SUBJECTIVE: The patient is still having dyspnea with exertion. She is still requiring 8 L of oxygen. PHYSICAL EXAMINATION: VITAL SIGNS: The patient is afebrile. The blood pressure is 137/73, saturation is 96% on 8 L. HEENT: Shows no facial swelling or erythema. LYMPHATIC: Shows no submandibular, cervical, or supraclavicular adenopathy. CARDIAC: Reveals regular rate and rhythm. Normal S1 and S2. LUNGS: Auscultation of lungs reveals crackles at the bases. There is no wheezing. ABDOMEN: Soft, nontender. There is no rebound or guarding. EXTREMITIES: Shows no leg edema or calf tenderness. There is no cyanosis or clubbing. SKIN: Shows no rashes. LABORATORY DATA: White blood cell count is 6.27, hemoglobin is 10.7. The platelet count is 347. The BUN to creatinine ratio is normal. The other electrolytes are within normal limits. IMPRESSION: 1. Atypical pneumonia. 2. Acute respiratory failure. 3. Anemia, unspecified. PLAN: 1. Continue current antibiotics. 2. Await additional serology results. 3. Wean oxygen as tolerated. 4. DVT prophylaxis. Prieto Brooks MD [facility] /[id number]
--- NOTE | 2020-03-21 14:49 | NUR ---
Nutrition Screen Note RD Recommendation for Physician: -Continue current diet as ordered Plan of Care: RD following, monitoring for tolerance and adequacy Nutrition reason for involvement: length of stay Primary Diagnose(s): hypoxia PMH: cholecystectomy, nasal surgery, tubal ligation, knee surgery Ht: 66 in Wt: 234.19 lb BMI: 37.8 kg/m2 IBW: [address] Assessment: (03/21/20) Chart reviewed. Labs and meds reviewed. Pt is a 44 year old female admitted with hypoxia. There are no reports of decreased appetite or unintentional weight loss upon admission. Pt has been consuming 50-100% of meals per chart. Will continue to monitor. Current Diet: regular Malnutrition Evaluation (03/21/20) The patient does not meet criteria for a specified degree of malnutrition at this time. Will re-evaluate at follow-up as appropriate. Diet Education Needs Assessment: Diet education not indicated. Nutrition Care Level: low Signed: Katie Urbano, RD, LD
[2020-03-21] MEDS: ALBUTEROL/IPRATROPIUM 3 ML NEB NEB PRN ×2 (15:17→19:40)
--- NOTE | 2020-03-21 15:39 | NUR ---
PATIENT ASSISTED TO THE RESTROOM AND BACK TO BED. SITTING UP IN BED TALKING ON THE PHONE. CALL LIGHT AT REACH.
--- NOTE | 2020-03-21 15:49 | NUR ---
INFECTIOUS DISEASE PROGRESS NOTE DR. ALDO MARIN ROS: +sob, +dyspnea ALL 14 POINT ROS NEG UNLESS OTHERWISE NOTED LABORATORY DATA: per chart RADIOLOGY: per chart, CT indicated viral PNA PHYSICAL EXAMINATION: GENERAL: She is currently alert and oriented. VITAL SIGNS: Stable, currently afebrile. HEENT: She is not icteric. NECK: Supple. no JVD CHEST: diminished, symmetric expansion HEART: S1, S2. no s3, s4, no rub ABDOMEN: Soft. Bowel sounds present. EXTREMITIES: No edema. no contractures SKIN: No rash. IMPRESSION: Atypical pneumonia Viral Pneumonia work-up for collagen disease PLAN: Pending: C-ANCA, P-ANCA, HIV, ESR, CRP, JULIO, RF urine legionella negative workup continuing on 8LPM Doris Richards MSN, [employer], AGACNP-BC DISCUSSED WITH DR MARIN
[2020-03-21] MEDS: DEXAMETHASONE SOD PHOS INJ 4 MG/ML VIAL IV SCH (17:15)
[2020-03-21] MEDS: ENOXAPARIN SOD INJ 40 MG/0.4 ML SYR SC SCH (17:15)
[2020-03-22] VITALS: BP 124/85
[2020-03-22] MEDS: ALBUTEROL/IPRATROPIUM 3 ML NEB NEB PRN ×4 (01:08→19:40)
[2020-03-22 04:00] VITALS: BP 126/82
--- NOTE | 2020-03-22 06:45 | NUR ---
Patient endorsed to next shift for continuity of care.
--- NOTE | 2020-03-22 07:30 | NUR ---
PATIENT IN BED WITH HEAD OF BED ELEVATED RECEIVING NEB TREATMENT, NO COMPLAIN VOICED. BED IN LOWER POSITION, CALL LIGHT AT REACH.
[2020-03-22 08:00] VITALS: BP 110/61
[2020-03-22] MEDS: SENNA-S TABLET PO SCH ×2 (09:10→17:05)
[2020-03-22] MEDS: CEFTRIAXONE SOD 2 GM/NS 100 ML 100 ML IV SCH (09:10)
[2020-03-22] MEDS: AZITHROMYCIN 500MG/NS 250 ML 250 ML IV SCH (09:49)
--- NOTE | 2020-03-22 10:00 | NUR ---
PATIENT OFF UNIT TO RADIOLOGY.
--- NOTE | 2020-03-22 10:32 | NUR ---
PATIENT BACK TO UNIT FROM RADIOLOGY.
--- NOTE | 2020-03-22 10:59 | Diagnostic Imaging Report ---
X-ray chest 2 views History: Respiratory failure Comparison: 03/17/2020 Findings: Central airways unremarkable. Heart size borderline normal. Tiny right pleural effusion suspected. No pneumothorax. Bilateral patchy interstitial and airspace infiltrates throughout all zones of both lungs are noted and are very slightly improved on both sides compared with the earlier exam. No acute changes in the skeletal structures, upper abdomen but no body wall. Impression: Findings consistent with Covid pneumonia with possible slight improvement in the pulmonary infiltrates. Signed by: Ruperto Poon MD on 03/22/2020 10:56 AM
[2020-03-22 12:00] VITALS: BP 114/61
--- NOTE | 2020-03-22 12:00 | NUR ---
SIGNED CHOICE FOR [facility] FOR HOME OXYGEN, PENDING RESP EVAL AND ORDER. FILED IN CHART.
--- NOTE | 2020-03-22 15:27 | Progress Note ---
DATE: SUBJECTIVE: The patient has some improvement. She is down to 4 L. PHYSICAL EXAMINATION: VITAL SIGNS: The blood pressure is 114/61, saturation is 96% on 4 L. HEENT: Shows no facial swelling or erythema. LYMPHATIC: Shows no submandibular, cervical or supraclavicular adenopathy. CARDIAC: Reveals regular rate and rhythm with normal S1 and S2. LUNGS: Auscultation of lungs reveals clear breath sounds bilaterally. There is no wheezing. ABDOMEN: Soft, nontender. There is no rebound or guarding. EXTREMITIES: Shows no leg edema or calf tenderness. There is no cyanosis or clubbing. LABORATORY DATA: White blood cell count is 6.27, hemoglobin is 10.7, and the platelet count is 347. The BUN to creatinine ratio is 14 to 0.65 and the other electrolytes are within normal limits. Albumin is 2.8. RADIOGRAPHIC DATA: Chest x-ray shows persistent bilateral infiltrates. IMPRESSION: 1. Atypical pneumonia. 2. Acute respiratory failure. 3. Anemia, unspecified. PLAN: 1. Continue current antibiotics. 2. Wean oxygen as tolerated. 3. Ambulate as tolerated. 4. DVT prophylaxis. 5. Complete antibiotics. Prieto Brooks MD [facility]/DAIANA /[id number]
--- NOTE | 2020-03-22 15:39 | NUR ---
PATIENT ASSISTED WITH SHOWER, LINENS CHANGED. BACK IN BED, O2 IN PLACE VIA N/C AT 5L. O2 SAT AT 95%. BED IN LOWER POSITION, CALL LIGHT AT REACH.
[2020-03-22 16:00] VITALS: BP 116/69
[2020-03-22] MEDS: DEXAMETHASONE SOD PHOS INJ 4 MG/ML VIAL IV SCH (17:05)
[2020-03-22] MEDS: ENOXAPARIN SOD INJ 40 MG/0.4 ML SYR SC SCH (17:05)
[2020-03-22] MEDS ORDERED: ONDANSETRON HCL 4 MG ORAL DISINTEGRATING TAB PO PRN (17:30)
--- NOTE | 2020-03-22 18:58 | NUR ---
Resumed care of patient. Patient awake and resting in bed, respirations even and unlabored on 5L NC. Bed locked and in lowest position, side rails upx2, call light placed within reach. All safety measures in place.
--- NOTE | 2020-03-22 19:23 | Progress Note ---
DATE: SUBJECTIVE: Ms. Ferrera is feeling better today. She was able to cough some blood and some sputum. She can take a deeper breath. She says the respiratory treatments helping her. Cultures remains negative. I called the lab yesterday, we are going to run she has two children who had COVID-19. REVIEW OF SYSTEMS: Otherwise, unremarkable. PHYSICAL EXAMINATION: GENERAL: She is currently alert and oriented. VITAL SIGNS: Stable, currently afebrile. HEENT: She is not icteric. NECK: Supple. CHEST: Crackles bilateral. HEART: S1, S2. ABDOMEN: Soft. Bowel sounds present. EXTREMITIES: No edema. SKIN: No rash. IMPRESSION: Pneumonia, atypical really concerned at COVID-19. Discussed with the lab, we will follow. Continue with aggressive treatment. She is weaning down oxygen was a good sign. MD KRISTINA Esteban/DAIANA /[id number]
[2020-03-22 20:11] VITALS: BP 108/68
[2020-03-22] MEDS: HYDROCODONE/APAP 5MG-325MG TAB PO PRN (22:05)
[2020-03-22] MEDS: ZOLPIDEM TARTRATE 5 MG TAB PO PRN (22:05)
[2020-03-22] MEDS: BENZONATATE 100 MG CAP PO PRN (22:05)
[2020-03-23] VITALS (8 sets, daily range): BP systolic 116–140; BP diastolic 65–81
[2020-03-23] MEDS: ALBUTEROL/IPRATROPIUM 3 ML NEB NEB PRN ×5 (01:10→19:36)
--- NOTE | 2020-03-23 07:02 | NUR ---
Handoff report given to oncoming nurse. Patient awake and resting quietly in bed, respirations even and unlabored on O2 NC, no s/s of distress at this time. All safety measures in place.
[2020-03-23] MEDS: CEFTRIAXONE SOD 2 GM/NS 100 ML 100 ML IV SCH (08:02)
[2020-03-23] MEDS: SENNA-S TABLET PO SCH ×2 (08:02→16:20)
[2020-03-23] MEDS: BENZONATATE 100 MG CAP PO PRN ×2 (08:03→20:47)
--- NOTE | 2020-03-23 11:51 | Progress Note ---
DATE: 03/23/2020 CHIEF COMPLAINT/HISTORY OF PRESENT ILLNESS: This is a 44-year-old woman, whose primary treating diagnosis is atypical pneumonia, likely secondary to COVID-19 infection. The patient is currently being seen by long term care pharmacist, namely Dr. Prieto Brooks as well as Infectious Disease specialist, namely Dr. Conteh. The patient is improving clinically. The patient is currently on 2 L oxygen and is doing quite well. The patient states she is eager to be discharged home. The patient underwent echocardiogram on March 17, 2020, which revealed left ventricular ejection fraction of 50% to 55%. The echocardiogram did not reveal any evidence of diastolic dysfunction. The patient underwent a chest film yesterday on March 22, 2020, which revealed findings consistent with COVID pneumonia with possible slight improvement in the pulmonary infiltrates and this was according to the radiologist. REVIEW OF SYSTEMS: As per HPI. PHYSICAL EXAMINATION: GENERAL: She is awake. She is alert. She is fluent. She is in no respiratory distress. VITAL SIGNS: Her blood pressure is 130/76, pulse 84, respiratory rate 18, temperature 98.5, oxygen saturation is 92% on 2 L oxygen. Height 5 feet 6 inches, weight is 235 pounds, BMI is 38. INTEGUMENT: Skin is warm and dry. No pallor, jaundice, or diaphoresis. HEENT: Icteric sclerae. Moist mucous membranes. NECK: Supple. CARDIOVASCULAR: Regular rate and rhythm. LUNGS: The patient has crackles in the bilateral lung park, worse in the right. ABDOMEN: Obese, benign. EXTREMITIES: No edema or deformity. NEUROLOGIC: Intact. DIAGNOSES: 1. Atypical pneumonia, likely COVID-19 infection. 2. Obesity. BMI 37. 3. Fatty liver disease. PLAN: 1. Wean off O2. 2. Arrange supplemental home oxygen if necessary. 3. Continue intravenous dexamethasone and azithromycin. 4. Continue nebulized bronchodilators. 5. Discharge planning for tomorrow, Tuesday March 24, 2020. I spent 30 minutes in the care of the patient. MD ANGUS Martínez/DAIANA /[id number]
[2020-03-23 12:06] LABS: BASOPHILS % 0.2 % (0.0-1.0); EOSINOPHILS % 0.5 % (0.0-6.0); HEMATOCRIT 31.7 % (34.2-44.1); HEMOGLOBIN 10.1 g/dL (12.0-16.0); LYMPHOCYTES # (AUTO) 1.5 (1.0-3.2); LYMPHOCYTES % 23.7 % (18.0-39.1); MEAN CORPUSCULAR HEMOGLOBIN 28.6 pg (28-32); MEAN CORPUSCULAR HGB CONC 31.9 g/dL (31-35); MEAN CORPUSCULAR VOLUME 89.8 fL (81-99); MONOCYTES # (AUTO) 0.5 (0.2-0.8); MONOCYTES % 7.9 % (4.4-11.3); NEUTROPHILS # (AUTO) 4.2 (2.1-6.9); PLATELET COUNT 385 x10e3/uL (140-360); RED BLOOD COUNT 3.53 x10e6/uL (3.6-5.1); RED CELL DISTRIBUTION WIDTH 13.7 % (11.7-14.4)
[2020-03-23 12:27] LABS: ALANINE AMINOTRANSFERASE 116 IU/L (0-55); ALBUMIN 2.8 g/dL (3.5-5.0); ALBUMIN/GLOBULIN RATIO 0.8 (0.8-2.0); ALKALINE PHOSPHATASE 37 IU/L (40-150); ANION GAP 12.5 mmol/L (8-16); BLOOD UREA NITROGEN 15 mg/dL (7-26); BUN/CREATININE RATIO 23 (6-25); CALCIUM 8.5 mg/dL (8.4-10.2); CARBON DIOXIDE 24 mmol/L (22-29); CHLORIDE 105 mmol/L (98-107); CREATININE, SERUM 0.64 mg/dL (0.57-1.11); EST GLOMERULAR FILTRATION RATE > 60 ML/MIN (60-); GLUCOSE 97 mg/dL (74-118); POTASSIUM 3.5 mmol/L (3.5-5.1); SODIUM 138 mmol/L (136-145)
--- NOTE | 2020-03-23 14:12 | Progress Note ---
DATE: SUBJECTIVE: The patient is feeling better. Oxygen was decreased to 2 L. She has less cough and less congestion. PHYSICAL EXAMINATION: VITAL SIGNS: Saturation is 94% and pulse is 82. Respiratory rate of 20. HEENT: Shows no facial swelling or erythema. LYMPHATIC: Shows no submandibular, cervical, or supraclavicular adenopathy. CARDIAC: Reveals regular rate and rhythm with normal S1, S2. LUNGS: Auscultation of lungs reveals crackles at bases. There is no wheezing. ABDOMEN: Soft, nontender. There is no rebound or guarding. EXTREMITIES: Shows no leg edema or calf tenderness. There is no cyanosis or clubbing. LABORATORY DATA: The white blood cell count is 6.3 and hemoglobin is 10.1. The platelet count is 385. BUN to creatinine ratio is normal. The other electrolytes are within normal limits. AST is 50 and the ALT is 116. Albumin is 2.8. RADIOGRAPHIC DATA: Chest x-ray shows slight improvement in bilateral infiltrates. IMPRESSION: 1. Atypical pneumonia. 2. Acute respiratory failure. 3. Anemia. PLAN: 1. Continue current antibiotics. 2. Arrange for home oxygen. 3. Continue bronchodilators. Prieto Brooks MD [facility] /[id number]
[2020-03-23] MEDS: AZITHROMYCIN 500MG/NS 250 ML 250 ML IV SCH (14:14)
--- NOTE | 2020-03-23 14:38 | NUR ---
Patient had a midline placed in the right upper arm. Flushes great. No redness or swelling.
[2020-03-23] MEDS: DEXAMETHASONE SOD PHOS INJ 4 MG/ML VIAL IV SCH (16:20)
[2020-03-23] MEDS: ENOXAPARIN SOD INJ 40 MG/0.4 ML SYR SC SCH (16:25)
--- NOTE | 2020-03-23 19:00 | NUR ---
Resumed care of patient. Patient awake and resting in bed, respirations even and unlabored on O2 NC, no s/s of distress at this time. All safety measures in place.
[2020-03-24 00:24] VITALS: BP 126/76
[2020-03-24] MEDS: ALBUTEROL/IPRATROPIUM 3 ML NEB NEB PRN ×2 (01:50→07:15)
[2020-03-24 05:47] VITALS: BP 144/95
[2020-03-24 06:07] LABS: BASOPHILS % 0.2 % (0.0-1.0); EOSINOPHILS % 0.2 % (0.0-6.0); HEMATOCRIT 31.4 % (34.2-44.1); HEMOGLOBIN 10.1 g/dL (12.0-16.0); LYMPHOCYTES # (AUTO) 1.2 (1.0-3.2); LYMPHOCYTES % 19.4 % (18.0-39.1); MEAN CORPUSCULAR HEMOGLOBIN 28.6 pg (28-32); MEAN CORPUSCULAR HGB CONC 32.2 g/dL (31-35); MONOCYTES # (AUTO) 0.4 (0.2-0.8); MONOCYTES % 5.6 % (4.4-11.3); NEUTROPHILS # (AUTO) 4.7 (2.1-6.9); NEUTROPHILS % 72.9 % (38.7-80.0); PLATELET COUNT 374 x10e3/uL (140-360); RED BLOOD COUNT 3.53 x10e6/uL (3.6-5.1); RED CELL DISTRIBUTION WIDTH 13.9 % (11.7-14.4)
[2020-03-24 06:57] LABS: ALANINE AMINOTRANSFERASE 131 IU/L (0-55); ALBUMIN 2.9 g/dL (3.5-5.0); ALBUMIN/GLOBULIN RATIO 0.9 (0.8-2.0); ALKALINE PHOSPHATASE 44 IU/L (40-150); ANION GAP 12.2 mmol/L (8-16); BLOOD UREA NITROGEN 15 mg/dL (7-26); BUN/CREATININE RATIO 23 (6-25); CALCIUM 8.5 mg/dL (8.4-10.2); CARBON DIOXIDE 24 mmol/L (22-29); CHLORIDE 104 mmol/L (98-107); CREATININE, SERUM 0.66 mg/dL (0.57-1.11); EST GLOMERULAR FILTRATION RATE > 60 ML/MIN (60-); GLUCOSE 104 mg/dL (74-118); POTASSIUM 4.2 mmol/L (3.5-5.1); SODIUM 136 mmol/L (136-145)
--- NOTE | 2020-03-24 07:02 | NUR ---
Bedside shift report given to oncoming nurse. Patient awake and sitting up in bed, no s/s of distress at this time. All safety measures in place.
[2020-03-24] MEDS: SENNA-S TABLET PO SCH (08:23)
[2020-03-24] MEDS: BENZONATATE 100 MG CAP PO PRN (08:24)
[2020-03-24 08:42] VITALS: BP 114/72
[2020-03-24 09:10] VITALS: BP 114/72
--- NOTE | 2020-03-24 10:32 | NUR ---
ORDERS FOR HOME 02 SATS WITH EXERTION ON ROOM AIR 84% CALLED [facility] WITH KEY [phone] AND NOTIFIED HIM OF PT'S DC PT TO CALL KEY WHEN SHE GETS HOME FOR DELVERY OF CONCNTRATOR PORTABLE TANK DELIVERED TO PT'S ROOM CONFIRMED ADDRESS AND PHONE NUMBER WITH PT FAXED FACE SHEET, ORDERS, H+P TO [facility]; CONFIRMATION REC'D AWAIT PHYSICIANS TO ROUND AND WRITE DC ORDERS
[2020-03-24 11:49] VITALS: BP 128/91
--- NOTE | 2020-03-24 12:39 | Discharge Summary ---
ADMITTING DIAGNOSES: 1. Coronavirus disease-19 with viral pneumonia. 2. Acute respiratory failure. 3. Acute kidney injury secondary to coronavirus disease-19 infection. 4. Hypokalemia. DISCHARGE DIAGNOSES: 1. Atypical pneumonia likely coronavirus-19 infection, resolving. 2. Acute hypoxic respiratory failure, resolving. 3. Anemia secondary to chronic disease. 4. Acute renal insufficiency, resolved. 5. Fatty liver disease. 6. Obesity, BMI 37. HOSPITAL COURSE: This is a 44-year-old woman, who was initially admitted to [facility] with diagnosis of COVID-19 pneumonia with subsequent acute hypoxic respiratory failure. The patient was never intubated, but was on high-flow oxygen during this hospitalization. The patient was seen by Infectious Disease specialist namely Dr. Conteh and a aircraft dispatcher namely Dr. Prieto Brooks during this hospitalization. The patient's oxygen requirement was weaned down to 2 L a minute. During hospitalization, she was found to have fatty liver disease. The patient does have underlying obesity with BMI of 37. On admission, the patient was found to have acute renal insufficiency, but during this hospitalization, her renal function normalized. On day of discharge, the patient's BUN and creatinine were 15 and 0.66 respectively. The patient's hemoglobin on discharge 10.1 g/dL. The patient's AST and ALT were 60 and 131 on discharge. The patient underwent a chest x-ray on March 22, 2020, which revealed slight improvement in the pulmonary infiltrates. The patient was checked twice for COVID-19 infection during this hospitalization via nasal swab and on both times, she was negative on March 16, 2020 and March 18, 2020, respectively. Due to the fact that she had multiple family members with confirmed COVID-[address] her [address] of the chest on admission revealed multifocal bilateral patchy ground-glass and consolidative opacities, it was felt that she most likely had COVID-19 viral infection with false negative test. The patient did improve clinically with intravenous dexamethasone and azithromycin. The patient underwent HIV testing during the hospitalization, which was negative. The patient was also checked for influenza type A and B antigen and this was also negative. She also had a urine test for Legionella antigen and this was negative. During this hospitalization, supplemental home oxygen was arranged. CONDITION ON DISCHARGE: Stable. DISCHARGE MEDICATIONS: 1. Azithromycin 500 mg daily for three more days. 2. Zolpidem 5 mg at bedtime p.r.n. insomnia, 30 prescribed one refill. 3. Dexamethasone 4 mg twice a day for 5 more days. 4. Nebulizer machine. 5. Albuterol/ipratropium nebulized treatments up to four times a day as needed for short of breath or wheezing. 6. Benzonatate 100 mg t.i.d p.r.n. cough, 60 prescribed one refill. 7. Supplemental oxygen 2 L a minute continuous. FOLLOWUP INSTRUCTIONS: The patient instructed to follow up with Dr. Prieto Brooks within [address] Abelardo Paris within 2 weeks. MD ANGUS Martínez/DAIANA /[id number] cc: MD Abelardo Solis DO Zaher Shebib, MD MTDLoreta
--- NOTE | 2020-03-24 14:59 | NUR ---
Patient received discharge order from Dr. Cantu once Dr. Conteh and Dr. Hayde Brooks cleared him. Patient given discharge instructions, education, and prescriptions. Patient midline removed at 1330 and covered with a C/D/I dressing. Patient tele removed and brought to telemetry. Patient read back discharge instructions including multiple follow up appointments. Patient verbalized understanding to it all. No other issues or complaints.
--- NOTE | 2020-03-24 16:21 | Progress Note ---
DATE: SUBJECTIVE: The patient is in room 298 today. The patient is doing well. There are no new complaints. REVIEW OF SYSTEMS: HEENT: Negative. PULMONARY: Negative. CARDIAC: Negative. She is still on oxygen. PHYSICAL EXAMINATION: GENERAL: She is currently alert and oriented. VITAL SIGNS: Stable, currently afebrile. HEENT: She is not icteric. NECK: Supple. CHEST: Clear. HEART: S1 and S2. ABDOMEN: Soft. Bowel sounds present. EXTREMITIES: No edema. SKIN: No rash. IMPRESSION: Hypoxemia, probably COVID-19, to be discharge home with oxygen. Follow up as an outpatient. Stay on oxygen, to see me back in 2 weeks. We will get COVID-19 antibody as an outpatient. MD KRISTINA Esteban/DAIANA /[id number]
== END 2020-03-24 14:14 | disposition home or self-care (01) | DRG 871 ==
LOC: ER 13:24 → ERHOLD 14:04 → MED/SURG3 21:50
PROC: XW0DXF5 Introduction of Other New Technology Therapeutic Substance into Mouth and Pharynx, External Approach, New Technology Group 5 (ICD-10-PCS; 2020-03-16)
PROC: 02HV33Z Insertion of Infusion Device into Superior Vena Cava, Percutaneous Approach (ICD-10-PCS; principal; 2020-03-23)
PROC: B548ZZA Ultrasonography of Superior Vena Cava, Guidance (ICD-10-PCS; 2020-03-23)
DX: A41.9 Sepsis, unspecified organism (principal); J18.9 Pneumonia, unspecified organism; J96.01 Acute respiratory failure with hypoxia; J12.9 Viral pneumonia, unspecified; N17.9 Acute kidney failure, unspecified; Z68.37 Body mass index [BMI] 37.0-37.9, adult; E87.6 Hypokalemia; Z90.49 Acquired absence of other specified parts of digestive tract; E66.9 Obesity, unspecified; K76.0 Fatty (change of) liver, not elsewhere classified; D63.8 Anemia in other chronic diseases classified elsewhere; Z20.828 Contact with and (suspected) exposure to other viral communicable diseases; Z11.59 Encounter for screening for other viral diseases
CPT/HCPCS: 36415; 71045; 71046; 71260; 80053; 81001; 82550; 82553; 83880; 84484; 85025; 85610; 85651; 85730; 86021; 86039; 86140; 86200; 86431; 86738; 87040; 87086; 87390; 87400; 87449; 93005; 93306; 94640; 99284; G0433; G0435; J0456; J0696; J1100; J1650; J1940; J7030; Q9967

== ENCOUNTER 2022-10-20 05:37 | Emergency (ER) | payer OTHER ==
[~2022-10-20] VITALS: Ht 167.6 cm; Wt 106.1 kg
[2022-10-20] MEDS ORDERED: DICYCLOMINE HCL 20 MG/2 ML VIAL IM ONE (06:45)
[2022-10-20] MEDS ORDERED: SODIUM CHLORIDE 0.9% 1000ML 1,000 ML IV STA (06:45)
[2022-10-20] MEDS ORDERED: ONDANSETRON HCL INJ 2MG/ML 2ML 2 MG/ML VIAL IV PRN (06:45)
[2022-10-20 07:02] LABS: BASOPHILS % 0.1 % (0.0-1.0); EOSINOPHILS % 0.1 % (0.0-6.0); HEMATOCRIT 38.9 % (34.2-44.1); HEMOGLOBIN 12.6 g/dL (12.0-16.0); LYMPHOCYTES # (AUTO) 0.4 (1.0-3.2); LYMPHOCYTES % 4.9 % (18.0-39.1); MEAN CORPUSCULAR HGB CONC 32.4 g/dL (31-35); MEAN CORPUSCULAR VOLUME 89.6 fL (81-99); MONOCYTES # (AUTO) 0.4 (0.2-0.8); MONOCYTES % 4.2 % (4.4-11.3); NEUTROPHILS % 90.4 % (38.7-80.0); PLATELET COUNT 251 x10e3/uL (140-360); RED BLOOD COUNT 4.34 x10e6/uL (3.6-5.1); RED CELL DISTRIBUTION WIDTH 13.3 % (11.7-14.4)
[2022-10-20 07:25] LABS: ALBUMIN 4.1 g/dL (3.5-5.0); ALBUMIN/GLOBULIN RATIO 1.2 (0.8-2.0); ANION GAP 13.4 mmol/L (8-16); CALCIUM 9.4 mg/dL (8.4-10.2); CREATININE, SERUM 0.83 mg/dL (0.57-1.11); POTASSIUM 4.4 mmol/L (3.5-5.1)
[2022-10-20] MEDS ORDERED: IOPAMIDOL 370 MG/ML 100 ML INFUS..BTL INJ ONE (07:37)
[2022-10-20] MEDS ORDERED: KETOROLAC TROMETHAMINE 30 MG/ML VIAL IV STA (08:14)
[2022-10-20 10:07] LABS: CLARITY,URINE CLEAR (CLEAR); COLOR,URINE YELLOW (YELLOW); KETONES,URINE NEGATIVE (NEGATIVE); LEUKOCYTE ESTERASE ,URINE NEGATIVE (NEGATIVE); NITRITE,URINE NEGATIVE (NEGATIVE); PROTEIN,URINE DIPSTICK NEGATIVE (NEGATIVE); URINE UROBILINOGEN 0.2 mg/dL (0.2 - 1)
[2022-10-20 10:18] LABS: BACTERIA,URINE RARE /HPF; EPITHELIAL CELLS,URINE RARE /LPF; RBC,URINE 0-5 /HPF (0-5); WBC,URINE (MAN) 0-5 /HPF (0-5)
[2022-10-20] MEDS ORDERED: DICYCLOMINE HCL20 MG PO (10:37)
[2022-10-20] MEDS ORDERED: ONDANSETRON ODT4 MG PO (10:37)
[2022-10-20 11:35] VITALS: BP 134/74; PULSE 77; RESP 14; TEMP 98.1; O2SAT 100
== END 2022-10-20 11:38 | disposition home or self-care (01) ==
LOC: ER 06:02
DX: R50.9 Fever, unspecified (principal); K52.9 Noninfective gastroenteritis and colitis, unspecified; R10.13 Epigastric pain; R11.2 Nausea with vomiting, unspecified; K21.9 Gastro-esophageal reflux disease without esophagitis
CPT/HCPCS: 36415; 74177; 80053; 81001; 83690; 84702; 85025; 93005; 99284; C9113; J0500; J1885; J2405; J7030; Q9967